=== PATIENT | female | born 1990 ===

== ENCOUNTER 2020-10-13 05:00 | Emergency (ER) | payer OTHER ==
[2020-10-13] MEDS ORDERED: Morphine 4 MG/ML VIAL ONE (05:17)
[2020-10-13] MEDS ORDERED: Ondansetron PF 4 MG/2 ML Vial ONE (05:18)
[2020-10-13 05:45] LABS: #Basophils 0.1 thou/uL (0.0-0.2); #Eosinphils 0.3 thou/uL (0.0-0.7); #Monocytes 0.5 thou/uL (0.11-0.59); %Eosinophils 2.5 % (0.0-10.0); RBC Distribution Width 11.9 % (11.5-14.5)
[2020-10-13 05:47] LABS: #Lymphocytes 3.5 thou/uL (1.20-3.40); #Neutrophils 6.3 thou/uL (1.40-6.50); %Monocytes 4.7 % (0.0-10.0); %Neutrophils 58.8 % (42.0-75.0); Mean Corpuscular HGB CONC 32.9 g/dL (32.0-36.0); Mean Corpuscular Hemoglobin 26.6 pg (27.0-31.0); Mean Corpuscular Volume 80.9 fL (78.0-98.0); Mean Platelet Volume 6.3 fL (7.4-10.4); Platelet Count 365 thou/uL (130-400); White Blood Cell (WBC) Count 10.7 thou/uL (4.8-10.8)
[2020-10-13 05:59] LABS: ALT (SGPT) 13 U/L (8-55); AST (SGOT) 23 U/L (5-34); Alkaline Phosphatase 103 U/L (40-110); Anion Gap 16 mmol/L (10-20); BUN (Urea Nitrogen) 18 mg/dL (7.0-18.7); Bilirubin, Total 0.4 mg/dL (0.2-1.2); Calc. Creatinine Clearance 0 mL/min (70-130); Calcium 9.1 mg/dL (7.8-10.44); Carbon Dioxide 19 mmol/L (22-29); Chloride 109 mmol/L (98-107); Globulin 3.1 g/dL (2.4-3.5); Glucose 138 mg/dL (70-105); Lipase 22 U/L (8-78); Potassium 3.1 mmol/L (3.5-5.1); Protein, Total 7.1 g/dL (6.0-8.3); Sodium 141 mmol/L (136-145)
[2020-10-13 06:09] LABS: BHCG - Serum Negative (NEGATIVE); Pregs Control Background? CLEAR/WHITE (CLR/WHITE); Pregs Control Bar Appear? YES (CONTROL BAR)
[2020-10-13] MEDS ORDERED: Sodium Chloride 0.9% 1,000 ML BAG ONE (07:03)
--- NOTE | 2020-10-13 08:09 | CT ---
PRELIMINARY REPORT/[facility]/EMERGENCY AFTER HOURS PROCEDURE EXAM: CT Abdomen and Pelvis with Intravenous Contrast CLINICAL HISTORY: EPIGASTRIC PAIN THAT STARTED THIS MORNING ABOUT 4:00; NAUSEA/VOMITTING; NEG PREG THIS DATE. TECHNIQUE: Axial computed tomography images of the abdomen and pelvis with intravenous contrast. CONTRAST: With; RT AC 18 GAUGE; ISOVUE 370 100 MLS. COMPARISON: None provided. FINDINGS: LUNG BASES: No basilar airspace consolidation or pleural effusion. LIVER: Unremarkable. GALLBLADDER AND BILE DUCTS: Unremarkable. No calcified stone. No ductal dilation. PANCREAS: Unremarkable. SPLEEN: Unremarkable. ADRENAL GLANDS: Unremarkable. KIDNEYS, URETERS, AND BLADDER: Unremarkable. No hydronephrosis or nephrolithiasis. No ureteral or bladder calculi. STOMACH AND BOWEL: No obstruction. No wall thickening. No CT evidence of colitis or acute diverticulitis. APPENDIX: Normal appendix not clearly identified but no specific CT indications of acute appendicitis. PERITONEUM: No free fluid. No free air. LYMPH NODES: No lymphadenopathy. REPRODUCTIVE: Unremarkable as visualized. VASCULATURE: No aortic aneurysm. BONES: No fracture or suspicious osseous abnormality. ABDOMINAL WALL AND SOFT TISSUES: Unremarkable. IMPRESSION: No acute intra-abdominal or pelvic abnormality. 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 If you recei ve this report in error, please call [facility] at [phone]. FINAL REPORT EMERGENCY AFTER HOURS CT ABDOMEN AND PELVIS: I disagree with the preliminary report. There is some dilatation of the intrahepatic biliary ducts. There is layered density within the gallb ladder with suggested gallbladder wall thickening. Findings are suspicious for the presence of either biliary stasis or acute cholecystitis with biliary stasis. Right upper quadrant ultrasound rec ommended for additional evaluation. Findings were called to Dr. Wilson at 8:07 AM on October 13, 2020. The visualized pancreas, adrenal glands and kidneys are normal-appearing. Spleen is normal-appearing. Unopacified large and small bowel are normal appearing. There is normal appendix in the right lower quadrant. Bladder is decompressed. The reproductive structures are within normal limits. Minima l free fluid is seen within the pelvis which is likely physiologic. No acute osseous abnormalities evident. Lung bases are clear. Code QD Transcribed Date/Time: 10/13/2020 8:36 AM
[2020-10-13] MEDS ORDERED: Iopamidol 370 76% 100 ML VIAL ONE (11:06)
== END 2020-10-13 07:30 | disposition home or self-care (01) ==
LOC: MADERS 05:00
DX: R11.2 Nausea with vomiting, unspecified (principal); R10.13 Epigastric pain; R00.0 Tachycardia, unspecified
CPT/HCPCS: 74177; 80053; 83690; 84484; 84703; 85025; 96374; 96375; J2270; J2405; J7050; Q9967